=== PATIENT | female | born 1945 | race Caucasian/White ===

== ENCOUNTER 2019-01-29 07:42 | Inpatient (IN) | payer OTHER, MEDICARE ==
[2019-01-29] MEDS: TRANEXAMIC ACID 1GM/100ML(PMX) 100 ML INTRA-OP X1 IVPB (08:00)
[2019-01-29] MEDS: ACETAMINOPHEN 500 MG TAB PO (08:00)
[2019-01-29] MEDS: CEFAZOLIN 2 GM/50 ML (PMX) 50 ML IVPB ×2 (08:00→19:27)
[2019-01-29] MEDS: TRANEXAMIC ACID 1GM/100ML(PMX) 100 ML PRE-OP X1 IVPB (08:00)
[2019-01-29] MEDS: LACTATED RINGER'S 1,000 ML IV* (08:57)
[2019-01-29] MEDS: DEXAMETHASONE 4 MG/ML 1 ML INJ IV (08:58)
[2019-01-29] MEDS: ACETAMINOPHEN 1000MG/100ML IV 100 ML IVPB (08:58)
[2019-01-29] MEDS ORDERED: LIDOCAINE 2% (SDV) 5 ML INJ (09:48)
[2019-01-29] MEDS ORDERED: EPINEPHrine 1 MG INJ (09:48)
[2019-01-29] MEDS ORDERED: PROPOFOL 100 ML (09:48)
[2019-01-29] MEDS ORDERED: ROCURONIUM 50 MG INJ (09:48)
[2019-01-29] MEDS ORDERED: CEFAZOLIN 1 GM INJ (09:49)
[2019-01-29] MEDS ORDERED: MIDAZOLAM 1 MG/ML 2 ML INJ (09:55)
[2019-01-29] MEDS ORDERED: FENTAnyl 50 MCG/ML VIAL (09:55)
[2019-01-29] MEDS: BACITRACIN 50000 UNITS INJ (09:58)
[2019-01-29] MEDS: POLYMYXIN B 500000 UNIT INJ (09:59)
[2019-01-29] MEDS ORDERED: TRANEXAMIC ACID 1GM/100ML(PMX) 100 ML ×2 (10:54→12:34)
[2019-01-29] MEDS ORDERED: ONDANSETRON 4 MG INJ (12:32)
[2019-01-29] MEDS ORDERED: DEXAMETHASONE 4 MG/ML 5 ML INJ (12:32)
[2019-01-29] MEDS ORDERED: GLYCOPYRROLATE 0.4 MG INJ (13:27)
[2019-01-29] MEDS ORDERED: NEOSTIGMINE 3 MG/3 ML SYRINGE (13:28)
[2019-01-29] MEDS ORDERED: BUPIVACAINE 0.5% (SDV) 30 ML INJ (13:57)
[2019-01-29] MEDS ORDERED: oxyCODONE 5 MG TAB PO (14:00)
[2019-01-29] MEDS ORDERED: NALOXONE (0.4 MG/ML) INJ IV (14:00)
[2019-01-29] MEDS ORDERED: NACL 0.9% 3 ML SYG IV (14:00)
[2019-01-29] MEDS ORDERED: CEFAZOLIN 2 GM/50 ML (PMX) 50 ML IVPB (14:00)
[2019-01-29] MEDS ORDERED: DIPHENHYDRAMINE 50 MG INJ IV (14:30)
[2019-01-29] MEDS ORDERED: ALBUTEROL 0.083% (NEB) 2.5 MG/3 ML AMP HHN (14:30)
[2019-01-29] MEDS ORDERED: hydrALAzine 20 MG INJ IV (14:30)
[2019-01-29] MEDS ORDERED: METOCLOPRAMIDE 10 MG INJ IV (14:30)
[2019-01-29] MEDS ORDERED: LABETALOL HCL 20MG INJ IV (14:30)
[2019-01-29] MEDS ORDERED: EPHEDrine SULFATE 50 MG/5 ML SYG IV (14:30)
[2019-01-29] MEDS ORDERED: HYDROmorphONE 1 MG/5 ML IV SYRINGE IV ×3 (14:30)
[2019-01-29] MEDS ORDERED: ONDANSETRON 4 MG INJ IV (14:30)
[2019-01-29] MEDS ORDERED: MIDAZOLAM 1 MG/ML 2 ML INJ IV (14:30)
[2019-01-29] MEDS ORDERED: KETOROLAC 30 MG INJ IV (14:30)
[2019-01-29] MEDS ORDERED: FENTAnyl 50 MCG/ML VIAL IV ×3 (14:30)
[2019-01-29] MEDS ORDERED: MEPERIDINE 25 MG INJ IV (14:30)
[2019-01-29] MEDS: LACTATED RINGER'S 1,000 ML IV (17:12)
[2019-01-29] MEDS: KETOROLAC 15 MG INJ IV (19:49)
[2019-01-29] MEDS: GABAPENTIN 100 MG CAP PO (20:41)
[2019-01-30] MEDS: LACTATED RINGER'S 1,000 ML IV ×2 (02:04→14:34)
[2019-01-30] MEDS: CEFAZOLIN 2 GM/50 ML (PMX) 50 ML IVPB ×2 (02:38→09:09)
[2019-01-30 05:24] LABS: ADD MAN DIFF? NO
[2019-01-30 05:35] LABS: BASOPHILS % 0.1 % (0.0-2.0); HEMATOCRIT 35.5 % (37.0-47.0); HEMOGLOBIN 11.7 g/dl (12.0-16.0); LYMPHOCYTES # 0.8 10^3/ul (0.8-2.9); LYMPHOCYTES % 6.7 % (15.0-51.0); MEAN CORPUSCULAR HEMOGLOBIN 30.5 pg (29.0-33.0); MEAN CORPUSCULAR VOLUME 92.7 fl (82.0-101.0); MEAN PLATELET VOLUME 10.4 fl (7.4-10.4); MONOCYTE # 0.7 10^3/ul (0.3-0.9); MONOCYTES % 5.8 % (0.0-11.0); NEUTROPHIL # 9.7 10^3/ul (1.6-7.5); PLATELET COUNT 230 10^3/UL (140-415); RED BLOOD COUNT 3.83 10^6/ul (4.20-5.40); RED CELL DISTRIBUTION WIDTH 12.9 % (11.5-14.5)
[2019-01-30 05:35] LABS: WHITE BLOOD COUNT 11.2 10^3/ul (4.8-10.8)
[2019-01-30 05:58] LABS: ANION GAP 6 (5-13); BLOOD UREA NITROGEN 19 mg/dl (7-20); CALCIUM 8.8 mg/dl (8.4-10.2); CARBON DIOXIDE 26 mmol/L (21-31); CHLORIDE 109 mmol/L (97-110); CREATININE 0.82 mg/dl (0.44-1.00); GLUCOSE 114 mg/dl (70-220); POTASSIUM 4.3 mmol/L (3.5-5.1); SODIUM 141 mmol/L (135-144)
[2019-01-30] MEDS: KETOROLAC 15 MG INJ IV (06:05)
[2019-01-30] MEDS: DOCUSATE SODIUM 100 MG CAP PO ×2 (09:09→21:48)
[2019-01-30] MEDS: ASPIRIN (EC) 81 MG TAB PO ×2 (09:09→21:48)
[2019-01-30] MEDS: GABAPENTIN 100 MG CAP PO ×3 (09:09→21:48)
[2019-01-30] MEDS: CELECOXIB 100 MG CAP PO ×2 (09:09→21:48)
[2019-01-30] MEDS: oxyCODONE 5 MG TAB PO (13:25)
[2019-01-30] MEDS ORDERED: ONDANSETRON 4 MG INJ IV (14:00)
[2019-01-30] MEDS ORDERED: NA PHOSPHATE/BIPHOS 133 ML ENEMA PR (21:30)
[2019-01-31] MEDS: LACTATED RINGER'S 1,000 ML IV (03:04)
[2019-01-31] MEDS: PANTOPRAZOLE (EC) 40 MG TAB PO (05:06)
[2019-01-31] MEDS: oxyCODONE 5 MG TAB PO ×3 (05:06→10:06)
[2019-01-31] MEDS: MAGNESIUM HYDROXIDE 30ML CUP PO (05:06)
[2019-01-31 05:40] LABS: ADD MAN DIFF? NO
[2019-01-31 05:51] LABS: BASOPHILS % 0.4 % (0.0-2.0); EOSINOPHILS # 0.1 10^3/ul (0.0-0.5); EOSINOPHILS % 1.2 % (0.0-7.0); HEMATOCRIT 34.5 % (37.0-47.0); HEMOGLOBIN 11.2 g/dl (12.0-16.0); LYMPHOCYTES # 1.9 10^3/ul (0.8-2.9); LYMPHOCYTES % 26.1 % (15.0-51.0); MEAN CORPUSCULAR HEMOGLOBIN 30.8 pg (29.0-33.0); MEAN CORPUSCULAR HGB CONC 32.5 g/dl (32.0-37.0); MEAN CORPUSCULAR VOLUME 94.8 fl (82.0-101.0); MEAN PLATELET VOLUME 10.6 fl (7.4-10.4); MONOCYTE # 0.7 10^3/ul (0.3-0.9); MONOCYTES % 9.8 % (0.0-11.0); NEUTROPHIL # 4.5 10^3/ul (1.6-7.5); NEUTROPHILS % 62.2 % (39.0-77.0); PLATELET COUNT 201 10^3/UL (140-415); RED BLOOD COUNT 3.64 10^6/ul (4.20-5.40); RED CELL DISTRIBUTION WIDTH 13.2 % (11.5-14.5)
[2019-01-31 05:51] LABS: WHITE BLOOD COUNT 7.3 10^3/ul (4.8-10.8)
[2019-01-31 06:17] LABS: ANION GAP 4 (5-13); BLOOD UREA NITROGEN 28 mg/dl (7-20); CALCIUM 9.2 mg/dl (8.4-10.2); CARBON DIOXIDE 30 mmol/L (21-31); CHLORIDE 109 mmol/L (97-110); GLUCOSE 86 mg/dl (70-220); POTASSIUM 4.3 mmol/L (3.5-5.1); SODIUM 143 mmol/L (135-144)
[2019-01-31] MEDS: LEVOTHYROXINE 112 MCG TAB PO (06:35)
[2019-01-31] MEDS ORDERED: NON-FORMULARY/PATIENT OWN MED (Mirabegron (Myrbetriq) 50 MG) PO (09:00)
[2019-01-31] MEDS: CELECOXIB 100 MG CAP PO (09:47)
[2019-01-31] MEDS: DOCUSATE SODIUM 100 MG CAP PO (09:50)
[2019-01-31] MEDS: GABAPENTIN 100 MG CAP PO ×2 (09:52→14:20)
[2019-01-31] MEDS: ASPIRIN (EC) 81 MG TAB PO (09:53)
[2019-01-31] MEDS: LOSARTAN 50 MG TAB PO (09:59)
== END 2019-01-31 14:30 | disposition home health service (06) | DRG 468 ==
LOC: REC 07:42 → MS1 16:53
PROC: 0SPD0JZ Removal of Synthetic Substitute from Left Knee Joint, Open Approach (ICD-10-PCS; principal; 2019-01-29 10:30)
PROC: 0SRD0J9 Replacement of Left Knee Joint with Synthetic Substitute, Cemented, Open Approach (ICD-10-PCS; 2019-01-29 10:30)
DX: T84.033A Mechanical loosening of internal left knee prosthetic joint, initial encounter (principal); I10 Essential (primary) hypertension; E03.9 Hypothyroidism, unspecified
CPT/HCPCS: 73560; 80048; 85025; 86850; 86900; 86901; 87070; 87075; 87081; 87102; 87116; 88300; 97110; 97116; 97161; 97167; 97530